=== PATIENT | male | born 1985 | race African-American/Black ===

== ENCOUNTER 2020-09-17 22:36 | Emergency (ER) | payer OTHER, SELFPAY ==
[2020-09-17] MEDS ORDERED: Cyclobenzaprine 10 MG TAB ONE (23:23)
== END 2020-09-17 23:25 | disposition home or self-care (01) ==
LOC: ERS 22:36
DX: S16.1XXA Strain of muscle, fascia and tendon at neck level, initial encounter (principal); S39.012A Strain of muscle, fascia and tendon of lower back, initial encounter; V49.9XXA Car occupant (driver) (passenger) injured in unspecified traffic accident, initial encounter
CPT/HCPCS: 99283

== ENCOUNTER 2020-09-25 23:33 | Emergency (ER) | payer SELFPAY ==
[2020-09-25] MEDS ORDERED: Ketorolac Tromethamine 30 MG/ML VIAL ONE ×2 (23:59)
== END 2020-09-26 00:16 | disposition home or self-care (01) ==
LOC: ERS 23:33
DX: S39.012A Strain of muscle, fascia and tendon of lower back, initial encounter (principal); I10 Essential (primary) hypertension; F17.210 Nicotine dependence, cigarettes, uncomplicated; Z79.899 Other long term (current) drug therapy; X50.0XXA Overexertion from strenuous movement or load, initial encounter; Y99.0 Civilian activity done for income or pay
CPT/HCPCS: 96372; 99283; J1885

== ENCOUNTER 2022-01-22 18:03 | Emergency (ER) | payer SELFPAY | END 2022-01-22 22:29 | disposition left against medical advice (07) | LOC: ERS 18:03 | DX: Z53.21 Procedure and treatment not carried out due to patient leaving prior to being seen by health care provider (principal) ==